=== PATIENT | female | born 1970 | race Caucasian/White ===

== ENCOUNTER 2019-01-07 07:22 | Day surgery (SDC) | payer OTHER ==
[2019-01-07] MEDS ORDERED: FENTAnyl 50 MCG/ML VIAL (09:57)
[2019-01-07] MEDS ORDERED: MIDAZOLAM 1 MG/ML 2 ML INJ ×4 (09:57→10:03)
== END 2019-01-07 17:50 | disposition home or self-care (01) ==
LOC: GIL 07:22
DX: R19.4 Change in bowel habit (principal); K64.8 Other hemorrhoids; K44.9 Diaphragmatic hernia without obstruction or gangrene; K21.9 Gastro-esophageal reflux disease without esophagitis; K29.50 Unspecified chronic gastritis without bleeding; K51.90 Ulcerative colitis, unspecified, without complications
CPT/HCPCS: 43239; 84703; 88305; 88312